=== PATIENT | female | born 1940 | race Caucasian/White ===

== ENCOUNTER 2016-09-05 21:56 | Emergency (ER) | payer MEDICARE ==
--- NOTE | ~2016-09-05 | CT71 ---
[facility] A Service of [facility] RADIOLOGY TEXT RESULTS PATIENT: MARCY LOYOLA LOCATION: [facility] : 40 UNIT #: [id number] AGE: [address]: Amilcar Boothe MD SEX: F ORDER DR: [id number] [facility] [address] [place], [place] [address] [id number] E MR#: [id number] Acc #: [id number] NAME: MARCY LOYOLA. : 1940 SEX: F STUDY DATE/TIME: 09/05/2016 20:56 UNIT: [facility] ROOM: STUDY DESCRIPTION: CT Head Wo Contrast Attending Physician: Amilcar Boothe M.D. Ordering Physician: Amilcar Boothe M.D. Primary Care Physician: Josue Robles M.D. MEDICAL IMAGING REPORT This report is preliminary unless electronic signature is present EXAM Noncontrast head CT. HISTORY Fell 3 hours ago. Injury to forehead, facial region and posterior neck pain. COMPARISON Head CT, 04/16/2015. TECHNIQUE NOTE: This CT exam was performed with one or more of the following radiation dose reduction techniques: automatic exposure control, adjustment of mA and/or kV according to patient size, and iterative reconstruction. FINDINGS Axial noncontrast imaging of the brain demonstrates atrophy. No mass, mass effect or midline shift. No hemorrhage. Bony calvaria, skull base, mastoids, sinuses unremarkable. IMPRESSION Age related atrophy. No acute findings. Dictated by... Seda Oneill M.D. THIS IS AN ELECTRONICALLY VERIFIED REPORT Seda Oneill M.D. at 09/06/2016 2:05 PM AKASH/saroj TD: 09/05/2016 22:37 [facility] A Service [facility] RADIOLOGY TEXT RESULTS PATIENT: MARCY LOYOLA LOCATION: [facility] : 40 UNIT #: [id number] AGE: [address]: Amilcar Boothe MD SEX: F ORDER DR: MEHDI #: [id number] MEDICAL IMAGING REPORT Page 1 of 1 COPY
--- NOTE | ~2016-09-05 | CT52 ---
[facility] A Service of [facility] RADIOLOGY TEXT RESULTS PATIENT: MARCY LOYOLA LOCATION: [facility] : 40 UNIT #: [id number] AGE: [address]: Amilcar Boothe MD SEX: F ORDER DR: [id number] [facility] [address] [place], [place] [address] [id number] E MR#: [id number] Acc #: [id number] NAME: MARCY LOYOLA : 1940 SEX: F STUDY DATE/TIME: 09/05/2016 20:59 UNIT: [facility] ROOM: STUDY DESCRIPTION: CT Cervical Spine Wo Cont Attending Physician: Amilcar Boothe M.D. Ordering Physician: Amilcar Boothe M.D. Primary Care Physician: Josue Robles M.D. MEDICAL IMAGING REPORT This report is preliminary unless electronic signature is present EXAM CT cervical spine without contrast HISTORY Fell 3 hours ago. Posterior neck pain. TECHNIQUE This CT exam was performed with one or more of the following radiation dose reduction techniques: automatic control, adjustment of mA and/or kV according to patient size, and iterative reconstruction. FINDINGS Thin section axial images performed through the cervical spine without contrast. Multiplanar reconstructed images reviewed at a workstation. Examination demonstrates about 3 mm of anterolisthesis C7 on T1 probably degenerative in nature. No definite acute fracture. There is abnormal alignment at the craniocervical junction with anterior subluxation of C2 and the ring of C1 relative to the foramen magnum. This measures about 7 mm. There is thinning of the cortex of the anterior arch of C1, possibly related to inflammatory arthropathy. Correlate clinically. The odontoid appears intact. Patient has undergone extensive anterior cervical fusion C4-C7 with anterior fixation plate. There is firm bony fusion across the C5-6 and C6-7 disc spaces but no firm bony fusion across the C4-5 disc space. The patient is partially fused across the C3-4 disc space. There is also partial fusion across the lamina at C7-T1. Multilevel spinal stenosis and foraminal stenosis due to a combination of disc disease and facet disease. IMPRESSION 1. Abnormal CT of the cervical spine demonstrating abnormal alignment at the craniocervical junction with anterior subluxation of C1 and C2 relative to the foramen magnum. I suspect this is a chronic in nature but there are no prior studies for correlation. This does [facility] [place] Service of [facility] RADIOLOGY TEXT RESULTS PATIENT: MARCY LOYOLA LOCATION: [facility] : 40 UNIT #: [id number] AGE: [address]: Amilcar Boothe MD SEX: F ORDER DR: contribute to narrowing of the upper canal and further neurosurgical evaluation may be warranted. 2. Thinning and erosive changes along the anterior arch of C1 at the atlantoaxial joint may be degenerative or secondary to an inflammatory arthropathy. Correlate with history. 3. Extensive postsurgical changes. The patient has been fused anteriorly at C4-C7 with intact instrumentation. 4. Multilevel spinal and foraminal stenosis due to a combination of degenerative disc disease and facet arthropathy. 5. 3 mm of anterior subluxation C7-T1 probably chronic in nature as this represents the junction between the fused cervical segments and the upper thoracic spine. Comparison is made to a head CT of 04/16/2017 and it appears that the anterior subluxation and craniocervical malalignment is a chronic process and is unchanged from 04/16/2015. Dictated by... Seda Oneill M.D. THIS IS AN ELECTRONICALLY VERIFIED REPORT Seda Oneill M.D. at 09/07/2016 1:05 PM AKASH/cholo TD: 09/05/2016 22:45 JOB #: [id number] MEDICAL IMAGING REPORT Page 1 of 1 COPY
[~2016-09-05 21:56] MED LIST: ALPRAZOLAM; ALPRAZOLAM0.5 MG PO; ANTIVERT; CALTRATE PLUS T1 TAB; CELEBREX; CENTRUM SILVER; CYMBALTA; CYMBALTA PO; DESYREL50 MG PO; DITROPAN-XL5 MG PO; DITROPAN5 MG PO; DURAGESIC100 MCG EXT; FENTANYL1 EAC2 TD; FLONASE 0.05% N16 GM; FLONASE16 GM; KEFLEX PO; LASIX; LIPITOR; LOPRESSOR PO; LORTAB 10/500 T1 TAB; MACRODANTIN50 MG PO; METOPROLOL TAR25 MG PO; MULTI VITAMIN1 EACH PO; NASCOBAL1 EACH; NASCOBAL2.3 ML; ONDANSETRON4 MG/TAB PO; OXYCODONE-ACET1 EAC1 PO; OXYCODONE-APAP1 EAC5 PO; OXYGEN; PREMARIN; PRILOSEC; REMERON; REMERON PO; SANCTURA; SINGULAIR; SINGULAIR PO; TEMAZEPAM; TEMAZEPAM PO; TEMAZEPAM30 MG PO; TOPROL XL PO; VANCOMYCIN HCL250 MG PO; VIT E; XANAX0.5 MG PO; ZYRTEC; [UNRECOGNIZED DRUG - OTHER]
== END 2016-09-05 22:09 | disposition home or self-care (01) ==
LOC: CED 21:56
DX: S01.81XA Laceration without foreign body of other part of head, initial encounter (principal); S13.4XXA Sprain of ligaments of cervical spine, initial encounter; J45.909 Unspecified asthma, uncomplicated; I10 Essential (primary) hypertension; Z88.8 Allergy status to other drugs, medicaments and biological substances; W18.30XA Fall on same level, unspecified, initial encounter; Y93.G3 Activity, cooking and baking; Y92.000 Kitchen of unspecified non-institutional (private) residence as the place of occurrence of the external cause
CPT/HCPCS: 70450; 72125; 99284

== ENCOUNTER → 2017-01-25 | Outpatient (CLI) | payer MEDICARE ==
--- NOTE | ~2017-01-25 | MY29 ---
[facility] A Service of [facility] RADIOLOGY TEXT RESULTS PATIENT: MARCY LOYOLA LOCATION: [facility] : 40 UNIT #: [id number] AGE: [address]: Josue Robles MD SEX: F ORDER DR: [id number] [facility] [address] [place], [place] [address] [id number] O MR#: [id number] Acc #: [id number] NAME: MARCY LOYOLA : 1940 SEX: F STUDY DATE/TIME: 01/25/2017 13:39 UNIT: [facility] ROOM: STUDY DESCRIPTION: MY ARON SCREENING W/ CAD BILAT Attending Physician: Josue Robles M.D. Ordering Physician: Josue Robles M.D. Primary Care Physician: Josue Robles M.D. MEDICAL IMAGING REPORT This report is preliminary unless electronic signature is present EXAM Bilateral digital screening mammogram with CAD, 01/25/2017 HISTORY 76-year-old female with no personal or family history of breast cancer or current complaints. History of benign right breast biopsy in 1980. COMPARISON Bilateral screening mammogram 10/31/2015, 09/12/2014, 08/30/2013. FINDINGS CC and MLO views were obtained of each breast utilizing digital technique and reviewed with an FDA-approved CAD device. Scattered fibroglandular densities are present bilaterally. A marker was placed over the upper outer right breast denoting a surgical scar. No suspicious nodule or nonsurgical architectural distortion changes are seen. Benign round calcifications are present within each breast, right greater left. No suspicious cluster of microcalcifications. No abnormal skin thickening or nipple retraction. IMPRESSION Routine screening mammogram is recommended in one year. Patients over the age of 40 are entered into a reminder system with target due date for the next mammogram. A result letter will also be sent to the patient. BIRADS: 1 Negative Dictated by... Rayna Montoya M.D. [facility] A Service [facility] RADIOLOGY TEXT RESULTS PATIENT: MARCY LOYOLA LOCATION: [facility] : 40 UNIT #: [id number] AGE: [address]: Josue Robles MD SEX: F ORDER DR: THIS IS AN ELECTRONICALLY VERIFIED REPORT Rayna Montoya M.D. at 01/26/2017 9:50 AM [place] TD: 01/26/2017 08:41 JOB #: [id number] MEDICAL IMAGING REPORT Page 1 of 1 COPY
== END | disposition home or self-care (01) ==
LOC: CWCC 13:30
DX: Z12.31 Encounter for screening mammogram for malignant neoplasm of breast (principal); Z98.890 Other specified postprocedural states
CPT/HCPCS: G0202